=== PATIENT | female | born 1985 | race Caucasian/White ===

== ENCOUNTER 2016-09-24 21:13 | Observation (INO) | payer MEDICAID ==
[2016-09-24] MEDS ORDERED: ONDANSETRON 4 MG/2 ML VIAL ONE (21:39)
[2016-09-24] MEDS ORDERED: NS 1,000 ML IV ONE ×3 (21:54→23:53)
[2016-09-24] MEDS ORDERED: ONDANSETRON 4 MG/2 ML VIAL IVP ONE (21:54)
--- NOTE | 2016-09-24 21:54 | EDPHY ---
H & P Stated Complaint: abdominal pain, flank pain, body aches HPI/ROS: HPI CHIEF COMPLAINT: Abdominal pain HISTORY OF PRESENT ILLNESS: This patient is a 31-year-old female, significant past medical history for fibromyalgia, endometriosis, presents emergency room with nausea, vomiting, diarrhea, urinary frequency with dysuria chills and muscle aches. She states this all started suddenly around noon today. She did not go to work. She has been vomiting all day. She denies fever but she has had chills and muscle aches. Denies chest pain or shortness of breath. She describes her pain is 10/10 lower abdomen crampy in nature. Denies vaginal bleeding. Denies being . Denies vaginal discharge. Past Medical History: Endometriosis, fibromyalgia Past Surgical History: Laparoscopic for endometriosis Social History: Denies daily use of drugs alcohol tobacco products Family History: Noncontributory ROS REVIEW OF SYSTEMS: A comprehensive 10 point review of systems is otherwise negative aside from elements mentioned in the history of present illness. Exam Constitutional tearful, appears dehydrated triage nursing summary reviewed, vital signs reviewed, awake/alert. Vital signs have been reviewed. Eyes normal conjunctivae and sclera, EOMI, PERRLA. HENT normal inspection, atraumatic, dry mucous membranes, no epistaxis, neck supple/ no meningismus, no raccoon eyes. Respiratory clear to auscultation bilaterally, normal breath sounds, no respiratory distress, no wheezing. Cardiovascular rate normal, regular rhythm, no murmur, no edema, distal pulses normal. Gastrointestinal tender palpation suprapubic, and lower abdomen right lower quadrant and left lower quadrant, no peritoneal signs no rebound, no guarding, normal bowel sounds, no distension, no pulsatile mass. Genitourinary bilateral CVA pain Musculoskeletal no midline vertebral tenderness, full range of motion, no calf swelling, no tenderness of extremities, no meningismus, good pulses, neurovascularly intact. Skin pink, warm, & dry, no rash, skin atraumatic. Neurologic awake, alert and oriented x 3, AAOx3, moves all 4 extremities equally, motor intact, sensory intact, CN II-XII intact, normal cerebellar, normal vision, normal speech. Psychiatric normal mood/affect. Heme/Lymph/Immune no lymphadenopathy. Differential diagnosis includes but is not limited to and in no particular order : Urinary tract infection, Bowel obstruction, appendicitis, gallbladder disease , diverticulitis, colitis, enteritis, perforated viscus, gastritis, GERD, esophagitis, urinary tract infection, pyelonephritis, kidney stones Medical Decision Making: Plan for this patient IV establishment, check blood work, IV fluid bolus, 6 mg IV morphine for pain control 4 mg IV Zofran for nausea, check blood work, will hold off on imaging at this time is patient think she has a urinary tract infection. Re-evaluation: CT scan of the abdomen pelvis with IV contrast The results of the study are this shows thickening of the bladder wall consistent with cystitis possibly pyelo. The study was read by Dr. Jiménez. I viewed the images myself on the PACS system. 2351: Patient here in the emergency room afebrile however had elevated initial lactic acid despite 2 L of fluid or lactic acid is still elevated she still has lower abdominal pain and has UTI. I do suspect pyelo. She does have flank pain , indicating possibly pyelonephritis, Also noted the patient denies drinking any alcohol prior to arrival however her serum alcohol level is elevated. Given her ongoing abdominal pain, UTI, nausea elevated lactic acid and acute alcohol intoxication she will need to be admitted to the hospital for IV antibiotics and IV fluid resuscitation Final diagnosis pyelonephritis, alcohol intoxication, dehydration, elevated lactic acid Source: Patient - Personal History LMP (Females 10-55): Over 28 Days Ago Current Tetanus Diphtheria and Acellular Pertussis (TDAP): Yes Tetanus Vaccine Date: 2007 - Medical/Surgical History Hx Asthma: No Hx Chronic Respiratory Disease: No Hx Diabetes: No Hx Cardiac Disease: No Hx Renal Disease: No Hx Cirrhosis: No Hx Alcoholism: No Hx HIV/AIDS: No Hx Splenectomy or Spleen Trauma: No Other PMH: denies - Social History Smoking Status: Current some day smoker Constitutional: Initial Vital Signs Temperature (C) 36.8 C 09/24/16 21:23 Heart Rate 97 09/24/16 21:23 Respiratory Rate 16 09/24/16 21:23 Blood Pressure 128/96 H 09/24/16 21:23 O2 Sat (%) 97 09/24/16 21:23 O2 Delivery Mode Room Air Allergies/Adverse Reactions: No Known Allergies Allergy (Unverified 11/05/15 00:06) Home Medications: Medication Instructions Recorded Cephalexin [Keflex (*)] 500 mg PO BID #14 cap 09/25/16 Dextroamphetamine/Amphetamine 15 mg PO DAILY@14 09/25/16 [Adderall 30 mg Tablet] Dextroamphetamine/Amphetamine 30 mg PO BID@08,12 09/25/16 [Adderall 30 mg Tablet] Diazepam [Valium 5 MG (*)] 5 mg PO BID PRN 09/25/16 Medical Decision Making - Data Points Laboratory Results: Laboratory Results 09/24/16 21:20 09/24/16 21:20 Microbiology Results: MICROBIOLOGY 09/24/16 21:20 Urine,Clean Catch Urine Culture - Preliminary [place] Types Medications Given: Discontinued Medications Amphetamine/Dextroamphetamine (Adderall) 15 mg PO DAILY@1400 [facility] Stop: 03/24/17 13:59 Last Admin: 09/25/16 14:10 Dose: Not Given Amphetamine/Dextroamphetamine (Adderall) 30 mg PO BID@0800,1200 [facility] Stop: 03/24/17 12:14 Last Admin: 09/25/16 13:18 Dose: Not Given Folic Acid (Folic Acid) 1 mg PO DAILY [facility] Stop: 03/24/17 08:59 Last Admin: 09/25/16 09:11 Dose: 1 mg Sodium Chloride (Ns) 1,000 mls @ 0 mls/hr IV ONCE ONE PRN Reason: Wide Open Stop: 09/24/16 21:55 Last Admin: 09/24/16 21:54 Dose: 1,000 mls Sodium Chloride (Ns) 1,000 mls @ 0 mls/hr IV ONCE ONE PRN Reason: Wide Open Stop: 09/24/16 22:29 Last Admin: 09/24/16 22:30 Dose: 1,000 mls Ceftriaxone Sodium/Dextrose (Rocephin 1 Gm (Premix)) 50 mls @ 100 mls/hr IV EDNOW ONE PRN Reason: Protocol Stop: 09/24/16 23:30 Last Admin: 09/24/16 23:30 Dose: 50 mls Sodium Chloride (Ns) 1,000 mls @ 0 mls/hr IV ONCE ONE PRN Reason: Wide Open Stop: 09/24/16 23:54 Last Admin: 09/24/16 23:56 Dose: 1,000 mls Ceftriaxone Sodium/Dextrose (Rocephin 1 Gm (Premix)) 50 mls @ 100 mls/hr IV DAILY [place] PRN Reason: Protocol Stop: 10/25/16 08:59 Last Admin: 09/25/16 09:10 Dose: 50 mls Lorazepam (Ativan Injection) 0.5 - 1 mg IVP Q4HRS PRN PRN Reason: Anxiety, Unable to Take PO Stop: 03/24/17 01:36 Last Admin: 09/25/16 01:58 Dose: 0.5 mg Morphine Sulfate (Morphine) 6 mg IVP EDNOW ONE Stop: 09/24/16 21:55 Last Admin: 09/24/16 22:14 Dose: 6 mg Morphine Sulfate (Morphine) 4 mg IVP EDNOW ONE Stop: 09/24/16 23:02 Last Admin: 09/24/16 23:11 Dose: 4 mg Multivitamins (Tab-A-Nara) 1 each PO DAILY [place] Stop: 03/24/17 08:59 Last Admin: 09/25/16 09:11 Dose: 1 each Ondansetron HCl (Zofran) 4 mg IVP EDNOW ONE Stop: 09/24/16 21:55 Last Admin: 09/24/16 21:54 Dose: 4 mg Thiamine HCl (Vitamin B-1) 100 mg PO DAILY [place] Stop: 03/24/17 08:59 Last Admin: 09/25/16 09:11 Dose: 100 mg Departure - Departure Disposition: [facility] Clinical Impression: Pyelonephritis, Dehydration Urinary tract infection Qualifiers: Urinary tract infection type: acute cystitis Hematuria presence: with hematuria Qualified Code(s): N30.01 - Acute cystitis with hematuria Alcohol intoxication Qualifiers: Complication of substance-induced condition: uncomplicated Qualified Code(s): F10.120 - Alcohol abuse with intoxication, uncomplicated Condition: Fair
[2016-09-24 22:00] LABS: % IMMATURE GRANULYOCYTES 0.2 % (0.0-1.1); ABSOLUTE IMMATURE GRANULOCYTES 0.02 10^3/uL (0.00-0.10); ADD DIFF? NO; ADD MORPH? NO; ADD SCAN? NO; ATYPICAL LYMPHOCYTE FLAG 0 (0-99); FRAGMENT RBC FLAG 0 (0-99); HEMATOCRIT 47.5 % (38.0-47.0); HEMOGLOBIN 16.7 g/dL (12.6-16.3); LEFT SHIFT FLG 0 (0-99); LIPEMIA HEMOLYSIS FLAG 90 (0-99); MEAN CELL HEMOGLOBIN 34.3 pg (27.9-34.1); MEAN CELL HEMOGLOBIN CONCENTR. 35.2 g/dL (32.4-36.7); MEAN CELL VOLUME 97.5 fL (81.5-99.8); MEAN PLATELET VOLUME 9.4 fL (8.7-11.7); PLATELET CLUMPS FLAG 10 (0-99); PLATELET COUNT 365 10^3/uL (150-400); RED BLOOD CELL COUNT 4.87 10^6/uL (4.18-5.33); RED CELL DISTRIBUTION WIDTH 12.2 % (11.5-15.2)
[2016-09-24 22:05] LABS: COLOR RED; LEUKOCYTE ESTERASE,URINE 3+ (NEGATIVE); NITRITE,URINE NEGATIVE (NEGATIVE)
[2016-09-24 22:10] LABS: INR 0.91 (0.83-1.16); PROTIME(PATIENT) 12.2 SEC (12.0-15.0)
[2016-09-24 22:11] LABS: APTT 27.2 SEC (23.0-38.0)
[2016-09-24 22:19] LABS: ALANINE AMINOTRANSFERASE 71 IU/L (9-52); ALBUMIN 4.8 g/dL (3.5-5.0); ALKALINE PHOSPHATASE 109 IU/L (38-126); ANION GAP 17 mEq/L (8-16); ASPARTATE AMINOTRANSFERASE 132 IU/L (14-46); BILIRUBIN,TOTAL 0.9 mg/dL (0.1-1.4); BILIRUBIN-CONJUGATED 0.5 mg/dL (0.0-0.5); BILIRUBIN-UNCONJUGATED 0.4 mg/dL (0.0-1.1); CALCIUM 9.7 mg/dL (8.5-10.4); CARBON DIOXIDE 21 mEq/l (22-31); CHLORIDE 107 mEq/L (97-110); CREATININE 0.7 mg/dL (0.6-1.0); GLOMERULAR FILTRATION RATE > 60; GLUCOSE 95 mg/dL (70-100); POTASSIUM 4.4 mEq/L (3.5-5.2); SODIUM 145 mEq/L (134-144)
[2016-09-24 22:55] LABS: BACTERIA 1+ /hpf (NONE SEEN); WBC,URINE 15-25 /hpf (0-3)
[2016-09-24 23:02] LABS: ETHANOL SERUM 241 mg/dL (0-10)
[2016-09-24] MEDS ORDERED: IOPAMIDOL (ISOVUE-300) 100 ML BTL ONE (23:05)
[2016-09-25] MEDS ORDERED: ACETAMINOPHEN 325 MG TAB PO PRN (01:37)
[2016-09-25] MEDS ORDERED: HYDROmorphONE/DILAUDID 1 MG/ML SYR IVP PRN (01:37)
[2016-09-25] MEDS ORDERED: ONDANSETRON 4 MG/2 ML VIAL IVP PRN (01:37)
[2016-09-25] MEDS ORDERED: ONDANSETRON DISINTEGRATING 4 MG TAB PO PRN (01:37)
[2016-09-25] MEDS ORDERED: LORazepam 2 MG/ML INJ IVP PRN (01:37)
[2016-09-25] MEDS ORDERED: oxyCODONE IR 5 MG TAB PO PRN (01:37)
[2016-09-25 04:50] LABS: % IMMATURE GRANULYOCYTES 0.1 % (0.0-1.1); ABSOLUTE IMMATURE GRANULOCYTES 0.01 10^3/uL (0.00-0.10); ADD DIFF? NO; ADD MORPH? NO; ADD SCAN? NO; ATYPICAL LYMPHOCYTE FLAG 0 (0-99); FRAGMENT RBC FLAG 0 (0-99); HEMATOCRIT 39.8 % (38.0-47.0); HEMOGLOBIN 13.8 g/dL (12.6-16.3); LEFT SHIFT FLG 0 (0-99); LIPEMIA HEMOLYSIS FLAG 90 (0-99); MEAN CELL HEMOGLOBIN 34.7 pg (27.9-34.1); MEAN CELL HEMOGLOBIN CONCENTR. 34.7 g/dL (32.4-36.7); MEAN PLATELET VOLUME 9.3 fL (8.7-11.7); PLATELET CLUMPS FLAG 0 (0-99); PLATELET COUNT 281 10^3/uL (150-400); RED BLOOD CELL COUNT 3.98 10^6/uL (4.18-5.33); RED CELL DISTRIBUTION WIDTH 12.4 % (11.5-15.2)
[2016-09-25 04:59] LABS: INR 0.97 (0.83-1.16); PROTIME(PATIENT) 12.8 SEC (12.0-15.0)
[2016-09-25 05:06] LABS: ALANINE AMINOTRANSFERASE 68 IU/L (9-52); ALBUMIN 3.3 g/dL (3.5-5.0); ALKALINE PHOSPHATASE 64 IU/L (38-126); ANION GAP 9 mEq/L (8-16); ASPARTATE AMINOTRANSFERASE 105 IU/L (14-46); BILIRUBIN,TOTAL 0.5 mg/dL (0.1-1.4); CALCIUM 8.1 mg/dL (8.5-10.4); CARBON DIOXIDE 23 mEq/l (22-31); CHLORIDE 111 mEq/L (97-110); CREATININE 0.7 mg/dL (0.6-1.0); GLOMERULAR FILTRATION RATE > 60; GLUCOSE 83 mg/dL (70-100); MAGNESIUM 1.8 mg/dL (1.6-2.3); POTASSIUM 4.2 mEq/L (3.5-5.2); SODIUM 143 mEq/L (134-144)
--- NOTE | 2016-09-25 08:43 | PDGENHP ---
History and Physical - Chief Complaint suprapubic pain - History of Present Illness Patient is a 31 year old female with fibromyalgia, panic disorder, endometriosis who presents to the ED with complaint of suprapubic abdominal pain. Patient reports that shes been experiencing generalized myalgias/malaise, intermittent fevers, chills, lack of appetite over the past 5 days. Yesterday she also began experiencing suprapubic, dysuria, urinary frequency. These symptoms continued to progress, so this evening she came to the ED for further evaluation. She reports some associated nausea, but no vomiting, denies diarrhea. On arrival to the ED, she was afebrile, hemodynamically stable, saturating well on room air. Labs revealed normal cbc, elevated lactic acid, positive UA. Given her degree of abdominal pain, CT abd/pelvis was obtained and revealed evidence of cystitis, but no evidence of pyelonephritis or bowel abnormality. She was cultured and given IV ceftriaxone and admitted for further management. History Information - Allergies/Home Medication List Allergies/Adverse Reactions: No Known Allergies Allergy (Unverified 11/05/15 00:06) Home Medications: Abilify 11/05/15 [Last Taken Unknown] Adderall 10 MG (*) 11/05/15 [Last Taken Unknown] Valium 11/05/15 [Last Taken Unknown] I have personally reviewed and updated: family history, medical history, social history, surgical history - Past Medical History Additional medical history: fibromyalgia. panic disorder. endometriosis - Surgical History Additional surgical history: wisdom. ex lap - Family History Positive for: hypertension - Social History Smoking Status: Current some day smoker Alcohol Use: Other (1-2 shots/day) Drug Use: None Additional social history: lives with roommates, independent Review of Systems ROS: 10pt was reviewed & negative except for what was stated in HPI & below Physical Exam Temp Pulse Resp BP Pulse Ox 36.8 C 85 14 112/65 93 09/25/16 07:47 09/25/16 07:47 09/25/16 07:47 09/25/16 07:47 09/25/16 07:47 Constitutional: no apparent distress, appears nourished, not in pain Eyes: PERRL, anicteric sclera, EOMI Ears, Nose, Mouth, Throat: moist mucous membranes, hearing normal, ears appear normal, no oral mucosal ulcers Cardiovascular: regular rate and rhythym, no murmur, rub, or gallop, pulses symmetric bilaterally, No JVD, No edema Respiratory: no respiratory distress, no rales or rhonchi, clear to auscultation Gastrointestinal: normoactive bowel sounds, soft, non-tender abdomen, no palpable masses, No guarding, No rebound Genitourinary: no bladder fullness, other (mild suprapubic tenderness) Skin: warm, normal color, no rashes or abrasions, no fluctuance, no induration, No mottled Musculoskeletal: full muscle strength, no muscle tenderness, normal joint ROM, no joint effusions Neurologic: AAOx3, sensation intact bilaterally, CN II-XII Intact, No weakness, No numbness, No facial droop Psychiatric: interacting appropriately, not anxious, not encephalopathic, thought process linear Lab Data & Imaging Review 09/25/16 04:37 09/25/16 04:37 WBC 7.13 10^3/uL (3.80-9.50) 09/25/16 04:37 RBC 3.98 10^6/uL (4.18-5.33) L 09/25/16 04:37 Hgb 13.8 g/dL (12.6-16.3) 09/25/16 04:37 Hct 39.8 % (38.0-47.0) 09/25/16 04:37 MCV 100.0 fL (81.5-99.8) H 09/25/16 04:37 MCH 34.7 pg (27.9-34.1) H 09/25/16 04:37 MCHC 34.7 g/dL (32.4-36.7) 09/25/16 04:37 RDW 12.4 % (11.5-15.2) 09/25/16 04:37 Plt Count 281 10^3/uL (150-400) D 09/25/16 04:37 MPV 9.3 fL (8.7-11.7) 09/25/16 04:37 Neut % (Auto) 57.1 % (39.3-74.2) 09/25/16 04:37 Lymph % (Auto) 30.6 % (15.0-45.0) 09/25/16 04:37 [place] % (Auto) 10.1 % (4.5-13.0) 09/25/16 04:37 Eos % (Auto) 1.3 % (0.6-7.6) 09/25/16 04:37 Baso % (Auto) 0.8 % (0.3-1.7) 09/25/16 04:37 Nucleat RBC Rel Count 0.0 % (0.0-0.2) 09/25/16 04:37 Absolute Neuts (auto) 4.07 10^3/uL (1.70-6.50) 09/25/16 04:37 Absolute Lymphs (auto) 2.18 10^3/uL (1.00-3.00) 09/25/16 04:37 Absolute Monos (auto) 0.72 10^3/uL (0.30-0.80) 09/25/16 04:37 Absolute Eos (auto) 0.09 10^3/uL (0.03-0.40) 09/25/16 04:37 Absolute Basos (auto) 0.06 10^3/uL (0.02-0.10) 09/25/16 04:37 Absolute Nucleated RBC 0.00 10^3/uL (0-0.01) 09/25/16 04:37 Immature Gran % 0.1 % (0.0-1.1) 09/25/16 04:37 Immature Gran # 0.01 10^3/uL (0.00-0.10) 09/25/16 04:37 PT 12.8 SEC (12.0-15.0) 09/25/16 04:37 INR 0.97 (0.83-1.16) 09/25/16 04:37 APTT 29.0 SEC (23.0-38.0) 09/25/16 04:37 VBG Lactic Acid 2.7 mmol/L (0.7-2.1) H 09/24/16 23:25 Sodium 143 mEq/L (134-144) 09/25/16 04:37 Potassium 4.2 mEq/L (3.5-5.2) 09/25/16 04:37 Chloride 111 mEq/L (97-110) H 09/25/16 04:37 Carbon Dioxide 23 mEq/l (22-31) 09/25/16 04:37 Anion Gap 9 mEq/L (8-16) 09/25/16 04:37 BUN 6 mg/dL (7-23) L 09/25/16 04:37 Creatinine 0.7 mg/dL (0.6-1.0) 09/25/16 04:37 Estimated GFR > 60 09/25/16 04:37 Glucose 83 mg/dL (70-100) 09/25/16 04:37 Calcium 8.1 mg/dL (8.5-10.4) L D 09/25/16 04:37 Magnesium 1.8 mg/dL (1.6-2.3) 09/25/16 04:37 Total Bilirubin 0.5 mg/dL (0.1-1.4) 09/25/16 04:37 Conjugated Bilirubin 0.5 mg/dL (0.0-0.5) 09/24/16 21:20 Unconjugated Bilirubin 0.4 mg/dL (0.0-1.1) 09/24/16 21:20 AST 105 IU/L (14-46) H 09/25/16 04:37 ALT 68 IU/L (9-52) H 09/25/16 04:37 Alkaline Phosphatase 64 IU/L (38-126) 09/25/16 04:37 Total Protein 6.0 g/dL (6.3-8.2) L D 09/25/16 04:37 Albumin 3.3 g/dL (3.5-5.0) L D 09/25/16 04:37 Lipase 153.0 IU/L (23-300) 09/24/16 21:20 TSH 1.090 uIU/mL (0.465-4.680) 09/25/16 04:37 Beta HCG, Qual NEGATIVE 09/24/16 21:20 Urine Color RED 09/24/16 21:20 Urine Appearance CLEAR 09/24/16 21:20 Urine pH 6.0 (5.0-7.5) 09/24/16 21:20 Ur Specific [place] 1.001 (1.002-1.030) L 09/24/16 21:20 Urine Protein NEGATIVE (NEGATIVE) 09/24/16 21:20 Urine Ketones NEGATIVE (NEGATIVE) 09/24/16 21:20 Urine Blood 3+ (NEGATIVE) H 09/24/16 21:20 Urine Nitrate NEGATIVE (NEGATIVE) 09/24/16 21:20 Urine Bilirubin NEGATIVE (NEGATIVE) 09/24/16 21:20 Urine Urobilinogen NEGATIVE EU (0.2-1.0) 09/24/16 21:20 Ur Leukocyte Esterase 3+ (NEGATIVE) H 09/24/16 21:20 Urine RBC 10-15 /hpf (0-3) H 09/24/16 21:20 Urine WBC 15-25 /hpf (0-3) H 09/24/16 21:20 Ur Epithelial Cells TRACE /lpf (NONE-1+) 09/24/16 21:20 Urine Bacteria 1+ /hpf (NONE SEEN) H 09/24/16 21:20 Urine Glucose NEGATIVE (NEGATIVE) 09/24/16 21:20 Ethyl Alcohol 241 mg/dL (0-10) H 09/24/16 21:52 Visualized and Interpreted imaging results: Yes Interpretation: CT abd/pelvis: cystitis Assessment & Plan Assessment: Patient is a 31 year old female with fibromyalgia, panic disorder who presents with 5 days of generalized malaise, fevers, and now suprapubic pain and dysuria. ED evaluation reveals mild sepsis secondary to acute cystitis. Plan: # acute cystitis On arrival patient is afebrile, not tachycardic and new leukocytosis, however, she does have a positive UA and urinary symptoms. CT abd/pelvis does not show any renal involvement, no CVA tenderness on exam. Will continue IV fluids, IV ceftriaxone, trend lactic acid and CBC. # fibromyalgia/panic disorder Cont home med regimen. # dispo: admit to observation status # gen: regular diet Full code
[2016-09-25] MEDS ORDERED: FOLIC ACID 1 MG TAB PO SCH (09:00)
[2016-09-25] MEDS ORDERED: THIAMINE HCL 100 MG TAB PO SCH (09:00)
[2016-09-25] MEDS ORDERED: MULTIVITAMINS 1 EACH TAB PO SCH (09:00)
[2016-09-25 11:33] VITALS: BP 124/80; PULSE 77; RESP 12; TEMP 98.1; O2SAT 96
[2016-09-25] MEDS ORDERED: DIAZEPAM 5 MG TAB PO PRN (11:57)
[2016-09-25] MEDS ORDERED: NON-FORMULARY NEW DRUG (Dextroamphetamine/Amphetamine [Adderall 30 Mg Tablet] 30 MG) PO SCH (12:00)
[2016-09-25] MEDS ORDERED: ADDERALL 10 MG TAB PO SCH ×2 (12:15→14:00)
[2016-09-25] MEDS ORDERED: DEXTROAMPHETAMINE PO SCH (14:00)
[2016-09-25] MEDS ORDERED: AMPHETAMINE PO SCH (14:00)
--- NOTE | 2016-09-25 16:31 | GDS ---
[f rep st] DISCHARGE SUMMARY DISCHARGE DIAGNOSES: 1. Acute cystitis. 2. Alcohol intoxication. 3. Lactic acidosis most likely due to dehydration in the setting of alcohol intoxication. CONSULTANTS: None. HOSPITAL COURSE AND STAY BY PROBLEM: Acute cystitis: The patient presented to the hospital with ab dominal pain. Her initial lactic acid was 3.2, then corrected to 0.7. On day of discharge, the pat nadia is tolerating a regular diet. Her urinary symptoms have improved. She denies any fevers or ch ills. She denies any abdominal pain. PHYSICAL EXAM: VITAL SIGNS: On day of discharge, blood pressure 124/80, pulse is 77, respiratory r ate 12, O2 sat 96% on room air. ABDOMEN: Soft, nontender, nondistended. No guarding or rebound te nderness. Normoactive bowel sounds. PERTINENT LABS AND STUDIES: CT of the abdomen done 09/24/2016, was reviewed. Refer to report for d etails. DISCHARGE MEDICATIONS: Please refer to discharge medication reconciliation in [facility] for details. Below is a preliminary list. New medications on hospital discharge: Keflex 500 mg p.o. twice daily for 1 week. DISCHARGE INSTRUCTIONS: The patient was discharged from the hospital where she was instructed to fo llow up with her primary care provider in the next week for routine hospital followup. She should h ave her urine culture results reviewed if she is not improving. She was counseled on the risks of a lcohol abuse. /[id number]/MODL
== END 2016-09-25 14:09 | disposition home or self-care (01) ==
LOC: F1N 09-25 01:37
PROVIDERS: ADMIT Internal Medicine; ATTEND Family Medicine
DX: N30.01 Acute cystitis with hematuria (principal); F10.120 Alcohol abuse with intoxication, uncomplicated; Y90.8 Blood alcohol level of 240 mg/100 ml or more; E87.2 Acidosis; M79.7 Fibromyalgia; F41.0 Panic disorder [episodic paroxysmal anxiety]; F17.210 Nicotine dependence, cigarettes, uncomplicated
CPT/HCPCS: 74177; 96361; 96365; 96375; 96376; 99285; G0378; G0480; J0696; J2060; J2405; Q9967

== ENCOUNTER 2016-10-16 22:41 | Emergency (ER) | payer MEDICAID ==
[2016-10-16 22:54] VITALS: BP 117/94; PULSE 94; RESP 20; TEMP 98.1; O2SAT 95
== END 2016-10-16 23:37 | disposition left against medical advice (07) ==
DX: Z53.21 Procedure and treatment not carried out due to patient leaving prior to being seen by health care provider (principal)

== ENCOUNTER 2016-12-18 01:02 | Emergency (ER) | payer MEDICAID ==
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
[2016-12-18] MEDS ORDERED: ONDANSETRON DISINTEGRATING 4 MG TAB ONE (01:27)
[2016-12-18 01:29] VITALS: RESP 18; O2SAT 95
[2016-12-18] MEDS ORDERED: ONDANSETRON DISINTEGRATING 4 MG TAB PO ONE (01:29)
[2016-12-18 02:50] LABS: % IMMATURE GRANULYOCYTES 0.2 % (0.0-1.1); ABSOLUTE IMMATURE GRANULOCYTES 0.01 10^3/uL (0.00-0.10); ADD DIFF? NO; ADD MORPH? NO; ADD SCAN? NO; ATYPICAL LYMPHOCYTE FLAG 0 (0-99); FRAGMENT RBC FLAG 0 (0-99); HEMATOCRIT 43.8 % (38.0-47.0); HEMOGLOBIN 15.6 g/dL (12.6-16.3); LEFT SHIFT FLG 0 (0-99); LIPEMIA HEMOLYSIS FLAG 90 (0-99); MEAN CELL HEMOGLOBIN 34.1 pg (27.9-34.1); MEAN CELL HEMOGLOBIN CONCENTR. 35.6 g/dL (32.4-36.7); MEAN CELL VOLUME 95.6 fL (81.5-99.8); MEAN PLATELET VOLUME 9.1 fL (8.7-11.7); PLATELET CLUMPS FLAG 10 (0-99); PLATELET COUNT 331 10^3/uL (150-400); RED BLOOD CELL COUNT 4.58 10^6/uL (4.18-5.33); RED CELL DISTRIBUTION WIDTH 12.1 % (11.5-15.2)
[2016-12-18 03:01] LABS: ALANINE AMINOTRANSFERASE 44 IU/L (9-52); ALBUMIN 4.7 g/dL (3.5-5.0); ALKALINE PHOSPHATASE 82 IU/L (38-126); ANION GAP 20 mEq/L (8-16); ASPARTATE AMINOTRANSFERASE 35 IU/L (14-46); BILIRUBIN,TOTAL 0.4 mg/dL (0.1-1.4); CALCIUM 9.3 mg/dL (8.5-10.4); CARBON DIOXIDE 20 mEq/l (22-31); CHLORIDE 110 mEq/L (97-110); CREATININE 0.7 mg/dL (0.6-1.0); GLOMERULAR FILTRATION RATE > 60; GLUCOSE 91 mg/dL (70-100); POTASSIUM 4.1 mEq/L (3.5-5.2); SODIUM 150 mEq/L (134-144); TOTAL PROTEIN 7.8 g/dL (6.3-8.2)
[2016-12-18 03:58] VITALS: BP 123/86; PULSE 94; TEMP 97.9
== END 2016-12-18 03:54 | disposition home or self-care (01) ==
LOC: EDUNIT# → EEVIPCON 01:02
DX: F10.921 Alcohol use, unspecified with intoxication delirium (principal); F17.200 Nicotine dependence, unspecified, uncomplicated

== ENCOUNTER 2017-01-08 23:36 | Emergency (ER) | payer MEDICAID ==
--- NOTE | 2017-01-08 23:39 | EDPHY ---
H & P HPI/ROS: HPI CHIEF COMPLAINT: Acute alcohol intoxication HISTORY OF PRESENT ILLNESS: This patient very pleasant 31-year-old female she presents emergency room by [facility] from home. A relatively at home called 911 as she was too intoxicated walk. She was found lying on the ground. She presents emergency room highly intoxicated alcohol. She states she drank a lot a rum. She is slurring her speech. Smells of alcohol. No trauma reported. Denies drug intoxication. Past Medical History: Alcohol use, attention deficit hyperactivity disorder, endometriosis Past Surgical History: No recent surgery Social History: Frequent alcohol use, denies illicit drugs or tobacco. Family History: Noncontributory ROS REVIEW OF SYSTEMS: A comprehensive 10 point review of systems is otherwise negative aside from elements mentioned in the history of present illness. Exam Constitutional intoxicated, smells of alcohol, slurring speech, triage nursing summary reviewed, vital signs reviewed, awake/alert. Eyes normal conjunctivae and sclera, EOMI, PERRLA. HENT normal inspection, atraumatic, moist mucus membranes, no epistaxis, neck supple/ no meningismus, no raccoon eyes. Respiratory clear to auscultation bilaterally, normal breath sounds, no respiratory distress, no wheezing. Cardiovascular rate normal, regular rhythm, no murmur, no edema, distal pulses normal. Gastrointestinal soft, non-tender, no rebound, no guarding, normal bowel sounds, no distension, no pulsatile mass. Genitourinary no CVA tenderness. Musculoskeletal no midline vertebral tenderness, full range of motion, no calf swelling, no tenderness of extremities, no meningismus, good pulses, neurovascularly intact. Skin pink, warm, & dry, no rash, skin atraumatic. Neurologic awake, alert and oriented x 3, AAOx3, moves all 4 extremities equally, motor intact, sensory intact, CN II-XII intact, normal vision, slurring speech Psychiatric normal mood/affect. Heme/Lymph/Immune no lymphadenopathy. Differential Diagnosis: Includes but is not limited to in a particular order acute alcohol intoxication, alcohol abuse Medical Decision Making: Plan for this patient breath alcohol. Monitor for sobriety. Re-evaluation: Breath alcohol 271. 1227AM: Patient is speaking coherently, cooperative. Ambulated. No significant ataxia. She will go to the [facility] for further alcohol recovery. Source: Patient, EMS - Personal History Tetanus Vaccine Date: 2008 - Medical/Surgical History Hx Asthma: No Hx Chronic Respiratory Disease: No Hx Diabetes: No Hx Cardiac Disease: No Hx Renal Disease: No Hx Cirrhosis: No Hx Alcoholism: No Hx HIV/AIDS: No Hx Splenectomy or Spleen Trauma: No Other PMH: ENDOMETRIOSIS - Social History Smoking Status: Current some day smoker Constitutional: Initial Vital Signs Temperature (C) 36.7 C 01/08/17 23:51 Heart Rate 89 01/08/17 23:51 Respiratory Rate 16 01/08/17 23:51 Blood Pressure 108/78 01/08/17 23:51 O2 Sat (%) 98 01/08/17 23:51 O2 Delivery Mode Room Air Allergies/Adverse Reactions: No Known Allergies Allergy (Unverified 01/08/17 23:52) Home Medications: Medication Instructions Recorded Cephalexin [Keflex (*)] 500 mg PO BID #14 cap 09/25/16 Dextroamphetamine/Amphetamine 15 mg PO DAILY@14 09/25/16 [Adderall 30 mg Tablet] Dextroamphetamine/Amphetamine 30 mg PO BID@08,12 09/25/16 [Adderall 30 mg Tablet] Diazepam [Valium 5 MG (*)] 5 mg PO BID PRN 09/25/16 Departure - Departure Disposition: Home, Routine, Self-Care Clinical Impression: Alcohol intoxication Qualifiers: Complication of substance-induced condition: uncomplicated Qualified Code(s): F10.920 - Alcohol use, unspecified with intoxication, uncomplicated Condition: Good Instructions: Alcohol Intoxication (ED), Abuse of Alcohol (ED) Referrals: Patient,NotPresent [Primary Care Provider] - As per Instructions
[2017-01-08 23:52] VITALS: RESP 16; TEMP 98.1
[2017-01-09] MEDS ORDERED: ONDANSETRON DISINTEGRATING 4 MG TAB PO ONE (00:18)
[2017-01-09] MEDS ORDERED: CHLORDIAZEPOXIDE 25MG PREPK#6 BTL TAKEHOME ONE (00:29)
[2017-01-09 00:48] VITALS: BP 132/77; PULSE 80; O2SAT 99
== END 2017-01-09 00:47 | disposition home or self-care (01) ==
LOC: EDUNIT#
DX: F10.920 Alcohol use, unspecified with intoxication, uncomplicated (principal); F17.200 Nicotine dependence, unspecified, uncomplicated

== ENCOUNTER 2017-02-15 16:56 | Emergency (ER) | payer MEDICAID ==
[2017-02-15 17:04] VITALS: TEMP 98.2
[2017-02-15] MEDS ORDERED: BENZONATATE 100 MG CAP PO ONE (18:25)
[2017-02-15] MEDS ORDERED: IBUPROFEN 600 MG TAB PO ONE (18:26)
--- NOTE | 2017-02-15 18:32 | EDPHY ---
H & P Time Seen by Provider: 02/15/17 17:43 HPI/ROS: HPI Cough. 31-year-old female by private vehicle. She complains of nasal congestion and a dry cough which has been worsening since Tuesday. She was seen at an urgent care today prior to arrival to our emergency department. She was told that she had a pneumonia after they did a chest x-ray on her. They prescribed her azithromycin. They did not prescribe her any antitussive. She states that her cough has remained nonproductive but it is painful. She is asking for a cough medicine. ROS: Constitutional: No fever, no chills. No weakness. Eyes: No discharge. No changes in vision. ENT: No sore throat. As above. Respiratory: As above. No shortness of breath. Cardiac: No chest pain, no palpitations. Gastrointestinal: No abdominal pain, no vomiting, no diarrhea. Genitourinary: No hematuria. No dysuria or increased frequency with urination. Musculoskeletal: No back pain. No neck pain. No myalgias or arthralgias. Skin: No rashes. Neurological: No headache. No focal weakness or altered sensation. Past medical history: Endometriosis. Social history: Nonsmoker. Here by herself. No alcohol. Physical Exam: General Appearance: Alert, no distress. Intermittent dry cough. This patient is responding to questions appropriately and in full sentences. This patient appears well-hydrated and well-nourished. Eyes: Pupils equal and round no pallor or injection. No lid edema, erythema or injection. ENT, Mouth: Mucous membranes are moist. The pharyngeal tissues are unremarkable. No edema or swelling. No asymmetry suggestive of abscess. No erythema or exudates. Respiratory: There are no retractions, lungs are clear to auscultation with good air movement bilaterally. No tachypnea. Cardiovascular: Regular rate and rhythm. Borderline tachycardia. No murmur. Neurological: Motor sensory function is grossly intact. Cranial nerves are normal. Gait is normal. Skin: Warm and dry, no rashes. Musculoskeletal: Neck is supple and nontender. No cervical, submental, submandibular lymphadenopathy. Extremities are symmetrical. All joints range without pain or impingement. Psychiatric: No agitation. No depression. Database: EKG: Imaging: Chest x-ray PA and lateral; the cardiac mediastinal silhouette is unremarkable. No evidence of infiltrate or pneumothorax. No acute cardiopulmonary disease process noted. Interpreted by me. Procedures: Emergency department course: Vital signs reviewed. Patient is afebrile. Mildly tachycardic. Blood pressure is normal. Pulse oximetry normal. 6:30 p.m., discussed results of chest x-ray with the patient. Plan will be to have her finish her prescription of azithromycin as originally prescribed. I will prescribe her Tessalon Perle and Hycodan cough syrup. I also discussed ibuprofen dosing. She will follow up with her primary care physician in 1-2 days. She feels comfortable with this plan. Return to emergency department precautions have been reviewed with her. All of her questions were answered. She was discharged in good condition. Differential Diagnosis: The differential diagnosis on this patient includes but is not limited to bronchitis, early pneumonia, upper respiratory infection. This represents a partial list of diagnoses considered. These considerations are based on history , physical exam, past history, reassessment and diagnostic testing. Smoking Status: Current some day smoker Constitutional: Initial Vital Signs Temperature (C) 36.8 C 02/15/17 17:01 Heart Rate 102 H 02/15/17 17:01 Respiratory Rate 20 02/15/17 17:01 Blood Pressure 103/64 02/15/17 17:01 O2 Sat (%) 98 02/15/17 17:01 O2 Delivery Mode Room Air Allergies/Adverse Reactions: No Known Allergies Allergy (Verified 02/15/17 16:59) Home Medications: Medication Instructions Recorded Dextroamphetamine/Amphetamine 15 mg PO DAILY@14 09/25/16 [Adderall 30 mg Tablet] Dextroamphetamine/Amphetamine 30 mg PO BID@08,12 09/25/16 [Adderall 30 mg Tablet] Diazepam [Valium 5 MG (*)] 5 mg PO BID PRN 09/25/16 AZITHROMYCIN 02/15/17 Benzonatate [Tessalon Pearles] 100 mg PO TID #12 cap 02/15/17 Cymbalta 02/15/17 Tylenol 02/15/17 Medical Decision Making - Diagnostics Imaging Results: Imaging Impressions Chest X-Ray 02/15/17 17:44 Impression: No focal pneumonia. Departure - Departure Disposition: Home, Routine, Self-Care Clinical Impression: Bronchitis Condition: Good Instructions: Acute Bronchitis (ED) Additional Instructions: Read and follow provided instructions. Follow-up with your primary care physician in 1-2 days for re-evaluation. Take medication as prescribed. Ibuprofen dosin mg every 6 hours with meals for the next 3 days only. Return to the emergency department for worsening cough, high fever, difficulty breathing or other serious concerns. Referrals: NONE *PRIMARY CARE P,. [Primary Care Provider] - As per Instructions Prescriptions: Benzonatate [Tessalon Pearles] 100 mg PO TID #12 cap
[2017-02-15 18:56] VITALS: BP 108/70; PULSE 92; RESP 18; O2SAT 96
== END 2017-02-15 18:56 | disposition home or self-care (01) ==
DX: J40 Bronchitis, not specified as acute or chronic (principal); F17.200 Nicotine dependence, unspecified, uncomplicated

== ENCOUNTER 2017-03-07 23:40 | Emergency (ER) | payer MEDICAID ==
[2017-03-07 23:46] VITALS: RESP 18; TEMP 98.2
--- NOTE | 2017-03-08 00:08 | EDPHY ---
General - History Smoking Status: Current some day smoker Narrative: CHIEF COMPLAINT: Abdominal pain, urinary tract infection HISTORY OF PRESENT ILLNESS: Patient complains of abrupt onset of symptoms consistent with the UTI for her. This happened within the past 2 hours. Involved suprapubic pain. Some cramping of the bladder. No pelvic pain. No vaginal bleeding or discharge. Frequent urination that is incomplete. No blood in the urine. No flank pain. No nausea or vomiting. Symptoms are described as moderate to severe. No alleviating factors. No other associated complaints or modifying factors. No recent antibiotics. REVIEW OF SYSTEMS: Ten systems reviewed and are negative unless otherwise noted in the HPI PCP: Dr. Hays SPECIALISTS: None PAST MEDICAL HISTORY: PTSD, fibromyalgia PAST SURGICAL HISTORY: None SOCIAL HISTORY: Occasional smoker. Occasional alcohol. No drug use. FAMILY HISTORY: Noncontributory EXAMINATION General Appearance: Alert, no distress Head: normocephalic, atraumatic Eyes: Pupils equal and round, no conjunctival pallor or injection ENT, Mouth: Mucous membranes moist. Airway patent Neck: Normal inspection, supple, non-tender Respiratory: Lungs are clear to auscultation no wheezing rhonchi or crackles Cardiovascular: Regular rate and rhythm. No murmur Gastrointestinal: Abdomen is soft and nondistended. There is mild tenderness in the suprapubic region. No tympany. No rigidity. No CVA tenderness. No guarding. Nonacute abdomen Back: non-tender, no bony abnormalities Neurological: A&O, nonfocal, normal gait Skin: Warm and dry, no rash Extremities: Nontender, no pedal edema Psychiatric: Mood and affect normal DIFFERENTIAL DIAGNOSES: Including but not limited to UTI, cystitis, urethritis, pyelonephritis, renal colic MDM: 12:05 a.m. Dysuria with urinary frequency. Patient feels as though this is a UTI. Abdominal exam is benign. Urinalysis is pending. Unable to perform ED urine is it was collected prior to my examination. She is in no distress. I do not feel she warrants any IV placement or emergent CT scan at this time. 12:45 a.m. Urinalysis consistent with urinary tract infection. Urine HCG negative. This is likely uncomplicated given her benign abdominal examination normal vital signs. She has no flank pain. No fever. No vomiting. I will treat her here with 1st dose of Keflex improving. Continue the same for 2 days total pyridium , 7 days total of Keflex. Urine culture sent. We discussed follow up with primary care physician. We discussed ED precautions. She is comfortable this plan and discharged home stable condition. (Milo Thorne) PHYSICIAN DOCUMENTATION: The patient was evaluated and managed by the Physician Retail Key Holder. My co- signature indicates that I have reviewed this chart and I agree with the findings and plan of care as documented. I am the secondary supervising physician. (Светлана Antonio) - Objective Vital Signs: Initial Vital Signs Temperature (C) 36.8 C 03/07/17 23:43 Heart Rate 105 H 03/07/17 23:43 Respiratory Rate 18 03/07/17 23:43 Blood Pressure 122/74 H 03/07/17 23:43 O2 Sat (%) 97 03/07/17 23:43 O2 Delivery Mode Room Air Allergies/Adverse Reactions: No Known Allergies Allergy (Verified 03/07/17 23:47) Home Medications: Medication Instructions Recorded Dextroamphetamine/Amphetamine 15 mg PO DAILY@14 09/25/16 [Adderall 30 mg Tablet] Dextroamphetamine/Amphetamine 30 mg PO BID@08,12 09/25/16 [Adderall 30 mg Tablet] Diazepam [Valium 5 MG (*)] 5 mg PO BID PRN 09/25/16 Cymbalta 02/15/17 Tylenol 02/15/17 Cephalexin [Keflex (*)] 500 mg PO TID #17 cap 03/08/17 Phenazopyridine HCl [Pyridium] 200 mg PO TID #5 tab 03/08/17 Laboratory Results: 03/08/17 03/08/17 00:00 00:00 Urine Color YELLOW Urine Appearance MODERATELY TURBID Urine pH 5.0 (5.0-7.5) Ur Specific [place] 1.019 (1.002-1.030) Urine Protein 1+ H (NEGATIVE) Urine Ketones NEGATIVE (NEGATIVE) Urine Blood 1+ H (NEGATIVE) Urine Nitrate NEGATIVE (NEGATIVE) Urine Bilirubin NEGATIVE (NEGATIVE) Urine Urobilinogen NEGATIVE EU EU (0.2-1.0) Ur Leukocyte Esterase 3+ H (NEGATIVE) Urine RBC 25-50 /hpf H /hpf (0-3) Urine WBC 50-182 /hpf H /hpf (0-3) Ur Epithelial Cells 1+ /lpf /lpf (NONE-1+) Urine Mucus 2+ /lpf H /lpf (NONE-1+) Urine Glucose NEGATIVE (NEGATIVE) Urine Test NEGATIVE Medications Given: Discontinued Medications Cephalexin (Keflex 500 Mg Prepack#4) 1 btl TAKEHOME EDNOW ONE PRN Reason: Protocol Stop: 03/08/17 00:43 Last Admin: 03/08/17 00:47 Dose: 1 btl Phenazopyridine HCl (Pyridium) 200 mg PO EDNOW ONE Stop: 03/08/17 00:43 Last Admin: 03/08/17 00:47 Dose: 200 mg Departure - Departure Disposition: Home, Routine, Self-Care Clinical Impression: Dysuria, Suprapubic abdominal pain Condition: Good Instructions: Cephalexin (By mouth), Urinary Tract Infection in Women (ED) Additional Instructions: 1. Medication as prescribed to completion 2. Increase fluid intake 3. ED precautions as discussed 4. Follow up with primary care physician Referrals: NONE *PRIMARY CARE P,. [Primary Care Provider] - As per Instructions [facility] [Non Staff Provider (MD)] - As per Instructions Misael Patterson MD [Medical Doctor] - As per Instructions Prescriptions: Cephalexin [Keflex (*)] 500 mg PO TID #17 cap Phenazopyridine HCl [Pyridium] 200 mg PO TID #5 tab
[2017-03-08 00:24] LABS: COLOR YELLOW; LEUKOCYTE ESTERASE,URINE 3+ (NEGATIVE); NITRITE,URINE NEGATIVE (NEGATIVE)
[2017-03-08 00:29] LABS: MUCUS 2+ /lpf (NONE-1+); RBC,URINE 25-50 /hpf (0-3); WBC,URINE 50-182 /hpf (0-3)
[2017-03-08] MEDS ORDERED: CEPHALEXIN 500MG PREPACK#4 BTL TAKEHOME ONE (00:42)
[2017-03-08] MEDS ORDERED: PHENAZOPYRIDINE HCL 200 MG TAB PO ONE (00:42)
[2017-03-08 00:50] VITALS: BP 104/79; PULSE 65; O2SAT 100
== END 2017-03-08 00:54 | disposition home or self-care (01) ==
DX: R10.9 Unspecified abdominal pain (principal); R30.0 Dysuria; F17.200 Nicotine dependence, unspecified, uncomplicated

== ENCOUNTER 2017-03-17 19:26 | Emergency (ER) | payer MEDICAID ==
[2017-03-17 19:32] VITALS: BP 130/91; PULSE 112; RESP 18; TEMP 98.2; O2SAT 96
[2017-03-17] MEDS ORDERED: IBUPROFEN 600 MG TAB PO ONE (19:45)
[2017-03-17] MEDS ORDERED: METOCLOPRAMIDE 10 MG TAB PO ONE (19:45)
[2017-03-17] MEDS ORDERED: PROMETHAZINE HCL 25 MG TAB PO ONE (19:46)
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
== END 2017-03-17 20:27 | disposition home or self-care (01) ==
DX: S06.0X0A Concussion without loss of consciousness, initial encounter (principal); S16.1XXA Strain of muscle, fascia and tendon at neck level, initial encounter; F17.200 Nicotine dependence, unspecified, uncomplicated; W01.198A Fall on same level from slipping, tripping and stumbling with subsequent striking against other object, initial encounter; Y99.8 Other external cause status

== ENCOUNTER 2017-05-07 05:20 | Emergency (ER) | payer MEDICAID ==
[2017-05-07 05:30] VITALS: RESP 18
[2017-05-07] MEDS ORDERED: PHENAZOPYRIDINE HCL 200 MG TAB PO ONE (05:48)
[2017-05-07] MEDS ORDERED: KETOROLAC 30 MG/1 ML SDV IM ONE (05:48)
[2017-05-07] MEDS ORDERED: HYDROCODONE/APAP 5/325 TAB PO ONE (05:48)
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
[2017-05-07 06:35] VITALS: BP 130/87; PULSE 82; TEMP 97.5; O2SAT 96
== END 2017-05-07 06:33 | disposition home or self-care (01) ==
LOC: EDUNIT#
DX: R10.32 Left lower quadrant pain (principal); R10.31 Right lower quadrant pain; F17.200 Nicotine dependence, unspecified, uncomplicated
CPT/HCPCS: J1885

== ENCOUNTER 2017-05-09 07:10 | Emergency (ER) | payer MEDICAID ==
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
[2017-05-09 07:20] VITALS: BP 132/93; PULSE 89; RESP 16; TEMP 97.7; O2SAT 95
[2017-05-09] MEDS ORDERED: ONDANSETRON 4 MG/2 ML VIAL IVP ONE (07:32)
[2017-05-09 07:36] LABS: PLATELET COUNT 213 10^3/uL (150-400)
== END 2017-05-09 09:00 | disposition home or self-care (01) ==
LOC: EDUNIT#
DX: F10.920 Alcohol use, unspecified with intoxication, uncomplicated (principal); E87.0 Hyperosmolality and hypernatremia; R39.15 Urgency of urination; F17.200 Nicotine dependence, unspecified, uncomplicated
CPT/HCPCS: G0480

== ENCOUNTER 2017-06-26 10:13 | Emergency (ER) | payer MEDICAID ==
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
[2017-06-26 10:37] VITALS: RESP 16; TEMP 97.7; O2SAT 97
[2017-06-26] MEDS ORDERED: AZITHROMYCIN 250 MG TAB PO ONE (11:46)
[2017-06-26] MEDS ORDERED: ACETAMINOPHEN 500 MG TAB PO ONE (11:46)
[2017-06-26] MEDS ORDERED: ULIPRISTAL ACETATE 30 MG TAB PO ONE (11:46)
[2017-06-26 14:52] VITALS: BP 100/60; PULSE 76
== END 2017-06-26 14:20 | disposition home or self-care (01) ==
LOC: EDUNIT# → EEVIPCON 10:13
DX: T74.21XA Adult sexual abuse, confirmed, initial encounter (principal); S09.90XA Unspecified injury of head, initial encounter; S89.91XA Unspecified injury of right lower leg, initial encounter; W22.01XA Walked into wall, initial encounter; Y92.038 Other place in apartment as the place of occurrence of the external cause; Y93.89 Activity, other specified; F17.200 Nicotine dependence, unspecified, uncomplicated
CPT/HCPCS: J0696

== ENCOUNTER 2017-07-01 00:47 | Emergency (ER) | payer MEDICAID ==
[2017-07-01] MEDS ORDERED: NS 1,000 ML IV ONE (00:55)
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
[2017-07-01 01:21] VITALS: BP 127/75; PULSE 80; RESP 16; TEMP 98.1; O2SAT 97
== END 2017-07-01 01:30 | disposition left against medical advice (07) ==
LOC: EDUNIT#
DX: T14.8XXD Other injury of unspecified body region, subsequent encounter (principal); F10.920 Alcohol use, unspecified with intoxication, uncomplicated; F17.200 Nicotine dependence, unspecified, uncomplicated; Y09 Assault by unspecified means

== ENCOUNTER 2017-07-03 01:36 | Emergency (ER) | payer MEDICAID ==
--- NOTE | 2017-07-03 03:27 | EDPHY ---
H & P Stated Complaint: Alcohol intoxication Time Seen by Provider: 07/03/17 03:01 HPI/ROS: HPI The patient presents brought in by ambulance for alcohol intoxication. She was drinking alcohol with several friends. She then had some back pain and thought that she had injured herself and called 911. The pain has now resolved. She says she has had multiple alcoholic drinks tonight. She was seen in the emergency department recently for a sane exam. REVIEW OF SYSTEMS Constitutional: No fever, no chills. Eyes: No discharge. ENT: No sore throat. Cardiovascular: No chest pain, no palpitations. Respiratory: No cough, no shortness of breath. Gastrointestinal: No abdominal pain, no vomiting. Genitourinary: No hematuria. Musculoskeletal: No back pain. Skin: No rashes. Neurological: No headache. PMHx: Reported endometriosis, attention deficit hyperactivity disorder, fibromyalgia Soc Hx: Housed, works as a landlord, alcohol use PHYSICAL General Appearance: Alert, clearly intoxicated Eyes: Pupils equal and round no pallor or injection ENT, Mouth: Mucous membranes moist Respiratory: There are no retractions, lungs are clear to auscultation Cardiovascular: Regular rate and rhythm Gastrointestinal: Abdomen is soft and non-tender, no masses, bowel sounds normal Neurological: A&O, moves all extremities Skin: Warm and dry, no rashes Musculoskeletal: Neck is supple non tender Extremities: symmetrical, full range of motion Psychiatric: Patient is oriented X 3, there is no agitation Source: Patient, EMS Exam Limitations: Intoxication - Personal History Tetanus Vaccine Date: 2013 - Medical/Surgical History Hx Asthma: No Hx Chronic Respiratory Disease: No Hx Diabetes: No Hx Cardiac Disease: No Hx Renal Disease: No Hx Cirrhosis: No Hx Alcoholism: Yes Hx HIV/AIDS: No Hx Splenectomy or Spleen Trauma: No Other PMH: ENDOMETRIOSIS, ADHD, FIBROMYALGIA - Social History Smoking Status: Current every day smoker Constitutional: Initial Vital Signs Temperature (C) 36.3 C 07/03/17 03:13 Heart Rate 91 07/03/17 03:13 Respiratory Rate 16 07/03/17 03:13 Blood Pressure 122/73 H 07/03/17 03:13 O2 Sat (%) 97 07/03/17 03:13 O2 Delivery Mode Room Air Allergies/Adverse Reactions: No Known Allergies Allergy (Verified 07/01/17 01:19) Home Medications: Medication Instructions Recorded Dextroamphetamine/Amphetamine 30 mg PO BID@08,12 09/25/16 [Adderall 30 mg Tablet] Diazepam [Valium 5 MG (*)] 5 mg PO BID PRN 09/25/16 Cymbalta 02/15/17 Medical Decision Making Differential Diagnosis: 32-year-old female with attention deficit hyperactivity disorder, fibromyalgia, endometriosis presents brought in by ambulance for alcohol intoxication. On exam, she is clearly intoxicated, exam is otherwise is unremarkable. She does not have any lumbar spinal tenderness. The patient was monitored for about 2 hr. She was able to walk with a steady gait. She was adamant about leaving and was discharged. Departure - Departure Disposition: Home, Routine, Self-Care Clinical Impression: Alcohol intoxication Condition: Good Instructions: At-Risk Alcohol Use (ED) Referrals: NONE *PRIMARY CARE P,. [Primary Care Provider] - As per Instructions
[2017-07-03 03:29] VITALS: RESP 16
[2017-07-03 04:38] VITALS: BP 130/95; PULSE 99; TEMP 97.7; O2SAT 96
== END 2017-07-03 04:36 | disposition home or self-care (01) ==
LOC: EDUNIT#
DX: F10.129 Alcohol abuse with intoxication, unspecified (principal); F17.200 Nicotine dependence, unspecified, uncomplicated

== ENCOUNTER 2017-07-04 00:12 | Emergency (ER) | payer MEDICAID ==
[2017-07-04] MEDS ORDERED: ONDANSETRON 4 MG/2 ML VIAL ONE (00:33)
[2017-07-04] MEDS ORDERED: ONDANSETRON 4 MG/2 ML VIAL IVP ONE (00:39)
[2017-07-04] MEDS ORDERED: MIDAZOLAM 2 MG/2 ML VIAL ONE ×2 (01:56→03:07)
[2017-07-04] MEDS ORDERED: MIDAZOLAM 2 MG/2 ML VIAL IVP ONE (02:10)
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
[2017-07-04 02:24] LABS: PLATELET COUNT 278 10^3/uL (150-400)
[2017-07-04] MEDS ORDERED: MIDAZOLAM 10 MG/2 ML VIAL ONE (03:09)
[2017-07-04] MEDS ORDERED: MIDAZOLAM 10 MG/2 ML VIAL IM ONE (03:10)
[2017-07-04] MEDS ORDERED: ACETAMINOPHEN 325 MG TAB PO ONE (07:50)
[2017-07-04] MEDS ORDERED: LORazepam 1 MG TAB PO PRN (21:20)
[2017-07-04] MEDS ORDERED: LORazepam 1 MG TAB PO ONE (21:21)
[2017-07-05 10:44] VITALS: RESP 16
[2017-07-05 11:59] VITALS: BP 149/72; PULSE 76; TEMP 98.1; O2SAT 96
== END 2017-07-05 12:03 ==
LOC: EDUNIT#
DX: F10.221 Alcohol dependence with intoxication delirium (principal); F32.2 Major depressive disorder, single episode, severe without psychotic features; R45.851 Suicidal ideations; F19.10 Other psychoactive substance abuse, uncomplicated; F17.200 Nicotine dependence, unspecified, uncomplicated
CPT/HCPCS: 80305; G0480; J2250; J2405

== ENCOUNTER 2017-12-31 10:33 | Emergency (ER) | payer MEDICAID ==
[2017-12-31] MEDS ORDERED: NS 1,000 ML IV ONE (11:12)
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
[2017-12-31 11:27] LABS: PLATELET COUNT 297 10^3/uL (150-400)
[2017-12-31 12:28] VITALS: BP 135/70
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
== END 2017-12-31 12:28 | disposition left against medical advice (07) ==
LOC: EEVIPCON 10:33
DX: F10.920 Alcohol use, unspecified with intoxication, uncomplicated (principal); F17.210 Nicotine dependence, cigarettes, uncomplicated; Y90.8 Blood alcohol level of 240 mg/100 ml or more; Z33.1 Pregnant state, incidental
CPT/HCPCS: G0480